=== PATIENT | male | born 1960 | race Caucasian/White ===

== ENCOUNTER 2018-11-04 12:23 | Emergency (ER) | payer OTHER ==
[~2018-11-04] VITALS: Ht 180.3 cm; Wt 65.8 kg
[2018-11-04 12:34] VITALS: Ht 180.3 cm; Wt 65.8 kg
--- NOTE | 2018-11-04 13:40 | NUR ---
PT REFUSING ABG AT THIS TIME. DR FOURNIER INFORMED. HHN TX GIVEN, PT TOLERATED TX WELL.
[2018-11-04 14:39] VITALS: BP 126/94
== END 2018-11-04 14:39 | disposition home or self-care (01) ==
LOC: ED 12:23
DX: J44.1 Chronic obstructive pulmonary disease with (acute) exacerbation (principal); J06.9 Acute upper respiratory infection, unspecified; Z85.118 Personal history of other malignant neoplasm of bronchus and lung
CPT/HCPCS: J7613; J7644; Q0092